=== PATIENT | female | born 1970 | race Caucasian/White ===

== ENCOUNTER 2021-02-15 14:55 | Emergency (ER) | payer MEDICAID ==
[~2021-02-15] VITALS: Ht 165.1 cm; Wt 93.3 kg
[~2021-02-15 14:55] MED LIST: SERT100T PO
[2021-02-15] MEDS ORDERED: MAALOX/HYOSCYAMINE/LIDOCAINE 45 ML BTL PO ONE (16:00)
--- NOTE | 2021-02-15 16:05 | NUR ---
PT TO ROOM FROM LOBBY.
[2021-02-15 16:17] LABS: BASOPHILS % (AUTO) 2 % (0-1); EOSINOPHILS % (AUTO) 6 % (1-7); LYMPHOCYTES % (AUTO) 36 % (22-44); MD NO; MEAN CORPUSCULAR HEMOGLOBIN 25.1 pg (27.0-34.8); MEAN CORPUSCULAR HGB CONC 33.2 g/dL (32.4-35.8); MEAN PLATELET VOLUME 7.9 fL (7.4-10.4); MONOCYTES % (AUTO) 8 % (2-9); NEUTROPHILS % (AUTO) 48 % (42-75); PLATELET COUNT 391 x10^3/uL (130-400); RED BLOOD COUNT 3.69 x10^6/uL (3.82-5.3); RED CELL DISTRIBUTION WIDTH 16.3 % (9.6-15.2)
[2021-02-15 16:20] LABS: ALANINE AMINOTRANSFERASE 18 U/L (12-78); ALBUMIN 3.7 g/dL (3.4-5.0); ANION GAP 4 mmol/L (5-15); CALCIUM 8.3 mg/dL (8.5-10.1); CHLORIDE 107 mmol/L (98-107); CREATININE 0.71 mg/dL (0.55-1.02)
[2021-02-15 16:24] LABS: ALKALINE PHOSPHATASE 69 U/L (45-117); BILIRUBIN,TOTAL 0.3 mg/dL (0.2-1.0); TOTAL PROTEIN 7.8 g/dL (6.4-8.2); TROPONIN I < 0.015 ng/mL (0.000-0.045)
[2021-02-15] MEDS ORDERED: MAALOX/HYOSCYAMINE/LIDOCAINE 45 ML BTL ONE (16:32)
--- NOTE | 2021-02-15 16:37 | NUR ---
PT MEDICATED PER NOV, [facility]A SENT.
[2021-02-15 16:46] LABS: MICROSCOPIC AUTO
[2021-02-15] MEDS ORDERED: FOSFOMYCIN 3 GM PACKET PO ONE (17:00)
[2021-02-15] MEDS ORDERED: PROMETHAZINE 25 MG/ML, 1ML IM ONE (17:00)
[2021-02-15 17:03] VITALS: BP 122/63
[2021-02-15] MEDS ORDERED: PROMETHAZINE 25 MG/ML, 1ML ONE (17:07)
[2021-02-15] MEDS ORDERED: FOSFOMYCIN 3 GM PACKET ONE (17:07)
== END 2021-02-15 17:57 | disposition home or self-care (01) ==
LOC: ED 16:55
DX: K21.00 Gastro-esophageal reflux disease with esophagitis, without bleeding (principal); R07.89 Other chest pain; R11.0 Nausea
CPT/HCPCS: 36415; 71045; 80053; 81001; 83690; 84484; 85025; 87086; 93005; 96372; 99285; J2550